=== PATIENT | male | born 1940 | race Caucasian/White ===

== ENCOUNTER 2016-11-27 04:06 | Emergency (ER) | payer OTHER ==
[2016-11-27 04:12] VITALS: RESP 18
[2016-11-27] MEDS ORDERED: FAMOTIDINE 20 MG TAB ONE (04:27)
[2016-11-27] MEDS ORDERED: predniSONE 20 MG TAB ONE (04:27)
[2016-11-27] MEDS ORDERED: diphenhydrAMINE 50 MG CAP PO ONE (04:27)
[2016-11-27] MEDS ORDERED: FAMOTIDINE 20 MG TAB PO ONE (04:29)
[2016-11-27] MEDS ORDERED: diphenhydrAMINE 25 MG CAP PO ONE (04:29)
[2016-11-27] MEDS ORDERED: predniSONE 20 MG TAB PO ONE (04:30)
[2016-11-27 04:37] VITALS: O2SAT 94
--- NOTE | 2016-11-27 05:37 | EDPHY ---
H & P Stated Complaint: THROAT SWELLING. WOKE 2 A.M. WORSE. ATE SHRIMP FOR DINNER Time Seen by Provider: 11/27/16 04:14 HPI/ROS: HPI The patient presents with sensation that his throat is swollen. As he ate dinner at approximately 9:00 p.m. last night and ate a lot of shrimp. When he was eating a chip he began to feel a swelling and pain in his right tongue. He thought this was unusual but was able to fall asleep, at 2:30 a.m. he awoke with swelling of his neck that was prevented him from sleeping. He felt that his chin was swollen and he had some difficulty swallowing, he says when he sits up he feels better. He is able to tolerate his secretions, he does not have any hoarseness of his voice. He has no rash or vomiting. REVIEW OF SYSTEMS Constitutional: No fever, no chills. Eyes: No discharge. ENT: Positive for sore throat. Cardiovascular: No chest pain, no palpitations. Respiratory: No cough, no shortness of breath. Gastrointestinal: No abdominal pain, no vomiting. Genitourinary: No hematuria. Musculoskeletal: No back pain. Skin: No rashes. Neurological: No headache. PMHx: CAD status post CABG, hypertension Soc Hx: Lives at home with his PHYSICAL General Appearance: Alert, no distress Eyes: Pupils equal and round no pallor or injection ENT, Mouth: Posterior pharynx appears normal, there is submandibular edema without erythema or tenderness Respiratory: There are no retractions, lungs are clear to auscultation Cardiovascular: Regular rate and rhythm Gastrointestinal: Abdomen is soft and non-tender, no masses, bowel sounds normal Neurological: A&O, moves all extremities Skin: Warm and dry, no rashes Musculoskeletal: Neck is supple non tender Extremities: symmetrical, full range of motion Psychiatric: Patient is oriented X 3, there is no agitation Source: Patient Exam Limitations: No limitations - Personal History Current Tetanus/Diphtheria Vaccine: Yes Current Tetanus Diphtheria and Acellular Pertussis (TDAP): Yes Tetanus Vaccine Date: > 5 years - Medical/Surgical History Hx Asthma: No Hx Chronic Respiratory Disease: No Hx Diabetes: No Hx Cardiac Disease: Yes Hx Renal Disease: No Hx Cirrhosis: No Hx Alcoholism: No Hx HIV/AIDS: No Hx Splenectomy or Spleen Trauma: No Other PMH: CAD with stent, HTN, hyperlipidemia, CABG 2014, prostatectomy 2004, post CABG aflutter w/ 3 cardioversions, ablation SVT/aflutter Apr 2015 - Social History Smoking Status: Former smoker Constitutional: Initial Vital Signs Temperature (C) 37.0 C 11/27/16 04:10 Heart Rate 67 11/27/16 04:10 Respiratory Rate 18 11/27/16 04:10 Blood Pressure 150/87 H 11/27/16 04:10 O2 Sat (%) 97 11/27/16 04:10 O2 Delivery Mode Room Air Allergies/Adverse Reactions: No Known Allergies Allergy (Unverified 11/27/16 04:09) Home Medications: Medication Instructions Recorded Rosuvastatin Calcium [Crestor 40mg 40 mg PO HS 11/02/13 (*)] Cholecalciferol Vit D3 [Vitamin D3 2,000 units PO HS 01/23/15 2000 units] Aspirin [Aspirin 81mg (*)] 81 mg PO DAILY #120 tab 02/06/15 Metoprolol Tartrate [Lopressor 25 12.5 mg PO BID #60 tab 02/06/15 mg (*)] Warfarin Sodium [Coumadin 5MG (*)] 5 mg PO TUTH@209905/14/15 Warfarin Sodium [Coumadin 7.5MG 7.5 mg PO SUMOWEFRSA@209905/14/15 (*)] Acetaminophen [Tylenol 325mg (*)] 325 - 650 mg PO Q4 PRN #0 tab 05/15/15 Losartan Potassium [Cozaar 50 mg 50 mg PO DAILY 11/27/16 (*)] predniSONE [Prednisone] 40 mg PO DAILY #12 tablet 11/27/16 Medical Decision Making Differential Diagnosis: This is a 76-year-old male with history of CAD, hypertension who presents from home with his for throat swelling which has been present since 2:30 a.m. this morning. This is in the setting of eating a large amount of shrimp for dinner. He has no known drug or medication allergies. On exam, he has fullness of his submandibular space. Differential diagnosis includes food allergy, anaphylaxis, Prashanth's angina. The patient was given prednisone, Benadryl, Pepcid with improvement in his symptoms. I feel he likely has a food allergy causing some swelling of the submandibular space. Given that there is no erythema or tenderness, warmth, I feel Prashanth's angina is unlikely. The patient has had no recent dental procedures. The patient was observed for several hours with improvement in his symptoms. He will be discharged home. - Data Points Medications Given: Discontinued Medications Diphenhydramine HCl (Benadryl) 50 mg PO EDNOW ONE Stop: 11/27/16 04:30 Last Admin: 11/27/16 04:31 Dose: 50 mg Famotidine (Pepcid) 20 mg PO EDNOW ONE Stop: 11/27/16 04:30 Last Admin: 11/27/16 04:31 Dose: 20 mg Prednisone (Prednisone) 60 mg PO ONCE ONE Stop: 11/27/16 04:31 Last Admin: 11/27/16 04:31 Dose: 60 mg Departure - Departure Disposition: Home, Routine, Self-Care Clinical Impression: Pharyngeal edema Allergic reaction Qualifiers: Encounter type: initial encounter Qualified Code(s): T78.40XA - Allergy, unspecified, initial encounter Condition: Good Instructions: Food Allergy (ED), Anaphylaxis (ED) Additional Instructions: Please avoid shellfish, as these may be causing your allergic reaction. Your symptoms should only improve, if your getting worse in any way, he should return to the emergency room. Please take the prescription for prednisone. You should also take Benadryl 25 mg every 6 hours as needed until your symptoms subsided. Referrals: Kaye Hurtado MD [Primary Care Provider] - As per Instructions Prescriptions: predniSONE [Prednisone] 40 mg PO DAILY #12 tablet
[2016-11-27 06:11] VITALS: BP 143/83; PULSE 58; TEMP 97.9
== END 2016-11-27 06:11 | disposition home or self-care (01) ==
DX: T78.1XXA Other adverse food reactions, not elsewhere classified, initial encounter (principal); J39.2 Other diseases of pharynx; I25.10 Atherosclerotic heart disease of native coronary artery without angina pectoris; I10 Essential (primary) hypertension; Z79.01 Long term (current) use of anticoagulants; Z79.82 Long term (current) use of aspirin; Z87.891 Personal history of nicotine dependence; Z95.1 Presence of aortocoronary bypass graft

== ENCOUNTER → 2017-06-02 | Outpatient (CLI) | payer OTHER | LOC: FIMAGING 16:50 | PROVIDERS: ATTEND Family Medicine | DX: S80.11XA Contusion of right lower leg, initial encounter (principal); Z79.01 Long term (current) use of anticoagulants; Z95.1 Presence of aortocoronary bypass graft ==